=== PATIENT | male | born 1975 | race Asian ===

== ENCOUNTER 2023-03-27 12:56 | Outpatient (RCR) | payer OTHER, SELFPAY | END 2023-03-27 23:59 | disposition home or self-care (01) | LOC: RPT 12:56 | PROVIDERS: ATTENDING PHYSICIAN Orthopaedic Surgery Sports Medicine; FAMILY PHYSICIAN Nurse Practitioner | DX: Z47.89 Encounter for other orthopedic aftercare (principal); S83.511D Sprain of anterior cruciate ligament of right knee, subsequent encounter; Z73.6 Limitation of activities due to disability; R26.89 Other abnormalities of gait and mobility; M25.561 Pain in right knee | CPT/HCPCS: 97110; 97112; 97116; 97163 ==

== ENCOUNTER 2023-04-26 13:02 | Outpatient (RCR) | payer OTHER, SELFPAY | END 2023-04-26 23:59 | disposition home or self-care (01) | LOC: RPT 13:02 | PROVIDERS: ATTENDING PHYSICIAN Orthopaedic Surgery Sports Medicine; FAMILY PHYSICIAN Nurse Practitioner | DX: Z47.89 Encounter for other orthopedic aftercare (principal); S83.511D Sprain of anterior cruciate ligament of right knee, subsequent encounter; Z73.6 Limitation of activities due to disability; M62.81 Muscle weakness (generalized); R26.89 Other abnormalities of gait and mobility | CPT/HCPCS: 97010; 97110; 97112; 97116; 97140; 97530 ==

== ENCOUNTER 2023-05-24 09:57 | Outpatient (RCR) | payer OTHER, SELFPAY | END 2023-05-24 13:22 | disposition home or self-care (01) | LOC: RPT 09:57 | PROVIDERS: ATTENDING PHYSICIAN Orthopaedic Surgery Sports Medicine; FAMILY PHYSICIAN Nurse Practitioner | DX: Z47.89 Encounter for other orthopedic aftercare (principal); S83.511D Sprain of anterior cruciate ligament of right knee, subsequent encounter; Z73.6 Limitation of activities due to disability; R26.2 Difficulty in walking, not elsewhere classified; R26.89 Other abnormalities of gait and mobility | CPT/HCPCS: 97010; 97110; 97530; 97535 ==

== ENCOUNTER → 2023-09-25 07:57 | Outpatient (REF) | payer OTHER, SELFPAY | LOC: RAD 07:57 | PROVIDERS: ATTENDING PHYSICIAN Chiropractor; FAMILY PHYSICIAN Nurse Practitioner | DX: M54.07 Panniculitis affecting regions of neck and back, lumbosacral region (principal) | CPT/HCPCS: 72110 ==